=== PATIENT | male | born 1995 | race African-American/Black ===

== ENCOUNTER 2017-05-30 13:08 | Emergency (ER) | payer SELFPAY ==
[~2017-05-30] VITALS: Ht 195.6 cm; Wt 120.0 kg
[2017-05-30 13:12] VITALS: BP 177/101
== END 2017-05-30 17:16 | disposition left against medical advice (07) ==
LOC: EDBD 13:08 → ER 13:45
DX: M25.562 Pain in left knee (principal); Z53.21 Procedure and treatment not carried out due to patient leaving prior to being seen by health care provider

== ENCOUNTER 2017-08-02 19:01 | Emergency (ER) | payer MEDICARE ==
[~2017-08-02] VITALS: Ht 198.1 cm; Wt 115.0 kg
[2017-08-02] MEDS ORDERED: MORPHINE SULFATE 10 MG/ML CPJ ONE (19:14)
[2017-08-02] MEDS ORDERED: CEFAZOLIN 1000MG PREMIX 50 ML IV ONE (19:15)
[2017-08-02] MEDS ORDERED: MORPHINE SULFATE 4 MG/ML CPJ (NOT FOR IM USE) IV ONE ×2 (19:15→22:00)
[2017-08-02] MEDS ORDERED: TETANUS, DIPHTHERIA, PERTUSSIS VAC/PF 0.5ML (>7YR OLD) IM ONE (19:15)
[2017-08-02 19:23] LABS: HEMATOCRIT 42.3 % (42.0-52.0); HEMOGLOBIN 14.2 g/dL (14.0-18.0); MEAN CORPUSCULAR HEMOGLOBIN 30.7 pg (28.0-32.0); MEAN CORPUSCULAR VOLUME 91.5 fL (80.0-94.0); PLATELET 298 x1000/uL (130-400); RED BLOOD CELL COUNT 4.63 mill/uL (4.7-6.1); RED CELL DISTRIBUTION WIDTH 13.7 % (11.6-14.6)
[2017-08-02 19:36] LABS: CARBON DIOXIDE 25 mEq/L (21-32); CHLORIDE 105 mEq/L (98-107)
[2017-08-02] MEDS ORDERED: MORPHINE SULFATE 10 MG/ML CPJ IV NR (22:21)
[2017-08-02 23:30] VITALS: BP 141/83
== END 2017-08-02 23:37 | disposition short-term general hospital (02) ==
LOC: EDSEX 19:01 → ER 19:24
DX: S82.191B Other fracture of upper end of right tibia, initial encounter for open fracture type I or II (principal); X93.XXXA Assault by handgun discharge, initial encounter; Y93.89 Activity, other specified; Y92.511 Restaurant or cafe as the place of occurrence of the external cause
CPT/HCPCS: 36415; 73590; 80048; 85027; 90471; 90715; 96365; 96375; 96376; 99285; J0690; J2270

== ENCOUNTER 2019-04-08 15:45 | Emergency (ER) | payer MEDICARE ==
[~2019-04-08] VITALS: Ht 198.1 cm; Wt 124.0 kg
[2019-04-08] MEDS: HYDROCODONE/ACETAMINOPHEN 5/325MG TABLET PO ONE (16:31)
[2019-04-08 17:10] VITALS: BP 123/74
== END 2019-04-08 17:32 | disposition home or self-care (01) ==
LOC: ER 15:45
DX: S80.12XA Contusion of left lower leg, initial encounter (principal); V43.62XA Car passenger injured in collision with other type car in traffic accident, initial encounter; Y93.89 Activity, other specified; Y92.89 Other specified places as the place of occurrence of the external cause; Y99.8 Other external cause status
CPT/HCPCS: 73590; 99283